=== PATIENT | female | born 2000 | race Caucasian/White ===

== ENCOUNTER 2023-06-12 23:01 | Emergency (ER) | payer OTHER ==
[~2023-06-12] VITALS: Ht 165.1 cm; Wt 53.9 kg
[2023-06-13 02:28] LABS: BASO # 0.1 10^3/uL (0.0-0.2); BASO % 0.4 % (0.0-1.0); EOS # 0.2 10^3/uL (0.0-0.5); EOS % 1.4 % (0.0-3.0); HEMATOCRIT 41.5 % (36.0-47.0); HEMOGLOBIN 13.9 g/dl (12.0-15.5); LYMPH # 3.5 10^3/uL (1.5-5.0); LYMPH % 29.8 % (24.0-44.0); MEAN CORPUSCULAR HEMOGLOBIN 28.2 pg (27.0-33.0); MEAN CORPUSCULAR HGB CONC 33.5 g/dl (32.0-36.5); MEAN CORPUSCULAR VOLUME 84.2 fl (80.0-96.0); MONO # 1.2 10^3/uL (0.0-0.8); MONO % 10.1 % (2.0-8.0); NEUTROPHILS # 6.8 10^3/uL (1.5-8.5); PLATELET COUNT, AUTOMATED 378 10^3/uL (150-450); RED BLOOD COUNT 4.93 10^6/uL (4.00-5.40); WHITE BLOOD COUNT 11.6 10^3/uL (4.0-10.0)
[2023-06-13 02:58] LABS: LIPASE 40 U/L (12-53)
[2023-06-13 03:00] LABS: ALBUMIN 4.2 G/DL (3.2-5.2); ALKALINE PHOSPHATASE 65 U/L (46-116); ALT/SGPT 15 U/L (7.0-40); AST/SGOT 9 U/L (<34); BILIRUBIN,DIRECT 0.2 MG/DL (<0.4); BILIRUBIN,TOTAL 0.6 MG/DL (0.3-1.2); BLOOD UREA NITROGEN 10 MG/DL (9-23); CALCIUM LEVEL 9.4 MG/DL (8.5-10.1); CARBON DIOXIDE LEVEL 26 MMOL/L (20-31); CHLORIDE LEVEL 106 MMOL/L (98-107); GLOMERULAR FILTRATION RATE > 60.0 (>60); GLUCOSE, FASTING 88 MG/DL (60-100); POTASSIUM SERUM 4.6 MMOL/L (3.5-5.1); SODIUM LEVEL 140 MMOL/L (136-145); TOTAL PROTEIN 7.2 G/DL (5.7-8.2)
[2023-06-13 03:07] LABS: HCG, SERUM QUALITATIVE NEGATIVE (NEGATIVE)
[2023-06-13] MEDS ORDERED: NS 1,000 ML IV ONE (03:35)
[2023-06-13] MEDS ORDERED: KETOROLAC 30 MG/ML 1ML VIAL IV ONE (03:35)
[2023-06-13] MEDS ORDERED: GASTROGRAFIN SOLUTION 30ML As Ordered ONE (03:38)
[2023-06-13] MEDS: GASTROGRAFIN SOLUTION 30ML PO SCH ×2 (04:00→04:17)
[2023-06-13] MEDS ORDERED: ISOVUE-370 76% 100ML VIAL As Ordered ONE (06:03)
[2023-06-13 07:59] LABS: GC DNA AMPLIFICATION NEGATIVE (NEGATIVE)
[2023-06-13] MEDS ORDERED: PROT1TAB2 PO (08:09)
[2023-06-13] MEDS ORDERED: PANTOPRAZOLE 40MG VIAL IV ONE (08:10)
[2023-06-13 08:21] VITALS: BP 107/55; TEMP 97.9; O2SAT 98
[2023-06-14] MEDS ORDERED: UNRESOLVED CLARIFICATION ENTRY XX SCH (00:01)
== END 2023-06-13 08:32 | disposition home or self-care (01) ==
LOC: M ED 23:01
DX: R10.9 Unspecified abdominal pain (principal)
CPT/HCPCS: 74177; 80048; 80076; 81001; 83690; 84703; 85025; 87661; 87810; 87850; 96361; 96374; 96375; 96376; 99284; C9113; J1885; Q9967

== ENCOUNTER 2023-11-01 07:37 | Inpatient (IN) | payer OTHER ==
[~2023-11-01] VITALS: Ht 165.1 cm; Wt 53.1 kg
[~2023-11-01 07:37] MED LIST: PROT1TAB2 PO
[2023-11-01] MEDS ORDERED: NS 1,000 ML IV ONE ×2 (08:05→16:15)
[2023-11-01] MEDS ORDERED: CHARCOAL ACTIVATED LIQUID 25GM/120ML BTL PO ONE (08:05)
[2023-11-01 08:19] LABS: BASO % 0.3 % (0.0-1.0); EOS # 0.1 10^3/uL (0.0-0.5); EOS % 0.9 % (0.0-3.0); HEMATOCRIT 39.2 % (36.0-47.0); HEMOGLOBIN 13.6 g/dl (12.0-15.5); LYMPH # 1.8 10^3/uL (1.5-5.0); LYMPH % 26.6 % (24.0-44.0); MEAN CORPUSCULAR HEMOGLOBIN 28.5 pg (27.0-33.0); MEAN CORPUSCULAR HGB CONC 34.7 g/dl (32.0-36.5); MONO # 0.5 10^3/uL (0.0-0.8); MONO % 7.5 % (2.0-8.0); NEUTROPHILS # 4.3 10^3/uL (1.5-8.5); NEUTROPHILS % 64.1 % (36.0-66.0); PLATELET COUNT, AUTOMATED 332 10^3/uL (150-450); RED BLOOD COUNT 4.78 10^6/uL (4.00-5.40); WHITE BLOOD COUNT 6.7 10^3/uL (4.0-10.0)
[2023-11-01 08:22] LABS: ETHYL ALCOHOL (ETHANOL) 0.004 % (0.000-0.010)
[2023-11-01 08:24] LABS: ALBUMIN 3.9 G/DL (3.2-5.2); ALKALINE PHOSPHATASE 53 U/L (46-116); ALT/SGPT 14 U/L (7.0-40); AST/SGOT 11 U/L (<34); BILIRUBIN,DIRECT 0.2 MG/DL (<0.4); BILIRUBIN,TOTAL 0.6 MG/DL (0.3-1.2); CPK CREATINE PHOSPHOKINASE 53 U/L (34-145); SALICYLATE LEVEL < 3.0 MG/DL (<30); TOTAL PROTEIN 6.9 G/DL (5.7-8.2)
[2023-11-01 08:27] LABS: THYROID STIMULATING HORMONE 0.497 uIU/ML (0.55-4.78)
[2023-11-01 08:31] LABS: HCG, SERUM QUALITATIVE NEGATIVE (NEGATIVE)
[2023-11-01 09:12] LABS: AMPHETAMINES LEVEL URINE NEGATIVE (NEGATIVE); BARBITURATES URINE NEGATIVE (NEGATIVE); BENZODIAZEPINES URINE NEGATIVE (NEGATIVE); COCAINE METABOLITE URINE NEGATIVE (NEGATIVE); METHADONE URINE NEGATIVE (NEGATIVE); OPIATES URINE NEGATIVE (NEGATIVE); PHENCYCLIDINE URINE NEGATIVE (NEGATIVE)
[2023-11-01 09:29] LABS: CANNABINOIDS URINE POSITIVE (NEGATIVE)
[2023-11-01] MEDS ORDERED: MED REC IN PROGRESS XX SCH (13:35)
[2023-11-01] MEDS ORDERED: MED REC CURRENTLY UNOBTAINABLE XX SCH (13:45)
[2023-11-01] MEDS ORDERED: MOM 30ML SUSPENSION UDC PO PRN (13:50)
[2023-11-01] MEDS ORDERED: diphenhydrAMINE 25MG CAP PO PRN (13:50)
[2023-11-01] MEDS ORDERED: IBUPROFEN 400MG TAB PO PRN (13:50)
[2023-11-01] MEDS ORDERED: MAALOX 30 ML SUSP *UDC PO PRN (13:50)
[2023-11-01] MEDS ORDERED: traZODone 50 MG TAB PO PRN (13:50)
[2023-11-01] MEDS ORDERED: ACETAMINOPHEN TAB 650MG DOSE (2X325MG) PO PRN (13:50)
[2023-11-01] MEDS ORDERED: VITMTA PO (15:38)
[2023-11-01] MEDS ORDERED: HOME MED LIST COMPLETE! XX SCH (15:40)
[2023-11-01] MEDS ORDERED: NS 500 ML IV ONE (18:15)
[2023-11-01] MEDS ORDERED: POTASSIUM CHLORIDE 10MEQ SR TABLET PO ONE (18:15)
[2023-11-01] MEDS ORDERED: ALBUTEROL 90 MCG/ACT 8GM HFA INHALER INH PRN (18:20)
[2023-11-01] MEDS: NS 1,000 ML IV SCH (19:52)
[2023-11-01 21:00] VITALS: BP 119/61; TEMP 98.7; O2SAT 98
[2023-11-02] VITALS: BP 119/68; TEMP 98.7; O2SAT 94
[2023-11-02] MEDS: NS 1,000 ML IV SCH (04:37)
[2023-11-02 05:26] LABS: HEMATOCRIT 33.1 % (36.0-47.0); MEAN CORPUSCULAR HEMOGLOBIN 28.9 pg (27.0-33.0); MEAN CORPUSCULAR HGB CONC 34.1 g/dl (32.0-36.5); MEAN CORPUSCULAR VOLUME 84.7 fl (80.0-96.0); PLATELET COUNT, AUTOMATED 305 10^3/uL (150-450); RED BLOOD COUNT 3.91 10^6/uL (4.00-5.40)
[2023-11-02 05:34] LABS: HEMOGLOBIN 11.3 g/dl (12.0-15.5)
[2023-11-02 05:36] VITALS: BP 126/88; TEMP 97.7; O2SAT 99
[2023-11-02 05:56] LABS: FREE T4 0.96 NG/DL (0.89-1.76); THYROID STIMULATING HORMONE 0.156 uIU/ML (0.55-4.78)
[2023-11-02 05:58] LABS: BLOOD UREA NITROGEN < 5 MG/DL (9-23); CALCIUM LEVEL 8.3 MG/DL (8.5-10.1); CARBON DIOXIDE LEVEL 23 MMOL/L (20-31); CHLORIDE LEVEL 115 MMOL/L (98-107); CREATININE FOR GFR 0.65 MG/DL (0.55-1.30); GLOMERULAR FILTRATION RATE > 60.0 (>60); GLUCOSE, FASTING 92 MG/DL (60-100); MAGNESIUM LEVEL 1.7 MG/DL (1.8-2.4); PHOSPHORUS LEVEL 3.8 MG/DL (2.5-4.9); POTASSIUM SERUM 4.2 MMOL/L (3.5-5.1); SODIUM LEVEL 145 MMOL/L (136-145)
[2023-11-02 06:00] VITALS: BP_SYST 130; BP_SYST 132; BP_SYST 133; BP_DIAS 82; BP_DIAS 92; BP_DIAS 93
[2023-11-02 07:17] VITALS: BP 122/67; TEMP 98.3; O2SAT 95
[2023-11-02] MEDS ORDERED: ENOXAPARIN 40MG/0.4ML SYRINGE (J1650 PER 10MG) SC SCH (09:00)
[2023-11-02] MEDS ORDERED: MAGNESIUM OXIDE 400MG TAB (MAG-OX) PO ONE (09:00)
[2023-11-02] MEDS ORDERED: PANTOPRAZOLE 40MG TAB (PROTONIX) PO SCH (09:00)
[2023-11-02] MEDS ORDERED: MULTIVITAMINS/MINERALS THERAP 1 TAB PO SCH (09:00)
[2023-11-02 11:48] VITALS: BP 119/72; TEMP 97.5; O2SAT 97
== END 2023-11-02 16:00 | DRG 918 ==
LOC: EDBD 07:37 → M ED 07:37 → M ED INP 13:47 → EDBEDREQ 17:58 → EDBEDREQSVC 17:58 → EDBEDREQTM 17:58 → M PCU 21:01
PROVIDERS: ADMIT Student in an Organized Health Care Education/Training Program; ATTEND Student in an Organized Health Care Education/Training Program
DX: T44.6X2A Poisoning by alpha-adrenoreceptor antagonists, intentional self-harm, initial encounter (principal); F33.2 Major depressive disorder, recurrent severe without psychotic features; I95.1 Orthostatic hypotension; E87.6 Hypokalemia; T43.022A Poisoning by tetracyclic antidepressants, intentional self-harm, initial encounter; T43.222A Poisoning by selective serotonin reuptake inhibitors, intentional self-harm, initial encounter; T14.91XA Suicide attempt, initial encounter; J45.909 Unspecified asthma, uncomplicated; F43.10 Post-traumatic stress disorder, unspecified